=== PATIENT | female | born 1960 | race African-American/Black ===

== ENCOUNTER 2024-09-07 16:03 | Emergency (ER) | payer OTHER ==
[2024-09-07 16:38] VITALS: BP 129/80; PULSE 83; RESP 18; TEMP 98.3
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
[2024-09-07] MEDS: ACETAMINOPHEN TAB 325 MG TAB PO STA (17:59)
== END 2024-09-07 18:33 | disposition home or self-care (01) ==
LOC: EC 16:03
DX: S80.11XA Contusion of right lower leg, initial encounter (principal); V43.62XA Car passenger injured in collision with other type car in traffic accident, initial encounter; Y92.410 Unspecified street and highway as the place of occurrence of the external cause
CPT/HCPCS: 71046; 99284